=== PATIENT | female | born 1990 | race Caucasian/White ===

== ENCOUNTER 2016-10-19 16:33 | Emergency (ER) | payer OTHER ==
[~2016-10-19] VITALS: Ht 160 cm; Wt 122.5 kg
[2016-10-19 16:56] VITALS: BP 155/95
--- NOTE | 2016-10-19 17:10 | NUR ---
PT AMBULATED TO BED 4
--- NOTE | 2016-10-19 17:11 | NUR ---
25/F BIB SELF C/O LOWER ABD PAIN X 1WK. DENIES N/V/D; SKIN IS PINK/WARM/DRY; AAOX4 WITH EVEN AND STEADY GAIT; LUNGS CLEAR BL; HR EVEN AND REGULAR; PATIENT STATES PAIN OF 7/10 AT THIS TIME; VSS; PATIENT POSITIONED FOR COMFORT; HOB ELEVATED; BEDRAILS UP X2; BED DOWN. ER MD MADE AWARE OF PT STATUS.
--- NOTE | 2016-10-19 17:57 | NUR ---
US tech at bedside for exam.
--- NOTE | 2016-10-19 18:06 | NUR ---
Dr. Mejia evaluating patient at bedside.
[2016-10-19] MEDS ORDERED: cefTRIAXone 250 MG in LIDOCAINE 1% ED 0.9 ML IM ONE (18:15)
[2016-10-19] MEDS ORDERED: KETOROLAC 60 MG/2 ML VIAL IM ONE (18:15)
[2016-10-19] MEDS ORDERED: AZITHROMYCIN 250 MG TAB PO ONE (18:15)
[2016-10-19 18:49] VITALS: BP 142/84
--- NOTE | 2016-10-19 18:50 | NUR ---
Patient discharged with 142/84;DENIES HEADACHE OR DIZINESS AT THIS TIME; AWARE. Written and verbal after care instructions given and explained. Patient alert, oriented and verbalized understanding of instructions. Ambulatory with steady gait. All questions addressed prior to discharge. ID band removed. Patient advised to follow up with PMD. Rx of TRAMADOL given. Patient educated on indication of medication including possible reaction and side effects. Opportunity to ask questions provided and answered.
[2016-10-22 08:06] LABS: CHLAMYDIA TRACHOMATIS AMP DNA NEGATIVE (NEGATIVE)
== END 2016-10-19 18:50 | disposition home or self-care (01) ==
LOC: MED 16:33
DX: R10.2 Pelvic and perineal pain (principal); R03.0 Elevated blood-pressure reading, without diagnosis of hypertension; R11.0 Nausea; G43.909 Migraine, unspecified, not intractable, without status migrainosus; Z88.1 Allergy status to other antibiotic agents
CPT/HCPCS: 36415; 76856; 81002; 81025; 87491; 96372; 99284; J0696; J1885; J2001; Q0092